=== PATIENT | female | born 1980 | race Caucasian/White ===

== ENCOUNTER 2018-04-16 19:23 | Emergency (ER) | payer OTHER ==
[~2018-04-16] VITALS: Ht 152.4 cm; Wt 111.1 kg
[~2018-04-16 19:23] MED LIST: ALLERGY10 M2 PO; BIRTH CONTROL PO; FLOMAX0.4 MG PO; HYDROCODON-ACE1 EAC7 PO; IBUPROFEN 800800 M1 PO; LOESTRIN 24 FE1 EACH PO; NORCO 5-325 TA1 EACH PO; PERCOCET 5-3251 EACH PO; PERCOCET PO; PRILOSEC 20 MG20 MG PO; TAMSULOSIN HCL0.4 MG PO; TIROSINT25 MCG PO; TORADOL 10 MG T10 MG PO; ZOFRAN 4 MG ORAL4 M1 DIS; ZOFRAN ODT4 MG PO; ZYRTEC10 M2 PO
[2018-04-16] MEDS ORDERED: POTASSIUM20 PO (19:38)
[2018-04-16 20:01] LABS: ABSOLUTE EOSINOPHILS 0.1 thou/uL (0.0-0.7); ABSOLUTE LYMPHOCYTES 3.4 thou/uL (0.8-5.3); ABSOLUTE MONOCYTES 0.6 thou/uL (0.0-1.2); ABSOLUTE NEUTROPHILS 9.3 thou/uL (1.6-8.1); BASOPHILS 0.3 %; EOSINOPHILS 0.6 %; HEMATOCRIT 39.6 % (37.0-47.0); LYMPHOCYTES 25.2 %; MCHC 32.9 g/dL (28.0-37.0); MCV 85.1 fL (80.0-100.0); MONOCYTES 4.2 %; MPV 6.9 fl. (7.2-11.1); NUCLEATED RBCS 0 /100WBC; PLATELET COUNT* 401 thou/uL (150-400); POLYS 69.7 %; RBC 4.66 mil/uL (4.20-5.00); RDW-CV 14.3 % (10.5-14.5); WBC 13.3 thou/uL (4.0-11.0)
[2018-04-16 20:11] LABS: ANION GAP 5 mmol/L (7-16); BUN 8 mg/dL (7-18); CALCIUM 9.5 mg/dL (8.5-10.1); CHLORIDE 102 mmol/L (98-107); CO2 29 mmol/L (21-32); CREATININE 0.8 mg/dL (0.6-1.3); GLUCOSE 115 mg/dL (70-99); SODIUM 136 mmol/L (136-145)
[2018-04-16 20:19] LABS: ALBUMIN 3.6 g/dL (3.4-5.0); ALKALINE PHOSPHATASE 181 U/L (46-116); SGOT 15 U/L (15-37); SGPT 35 U/L (30-65); TOTAL BILIRUBIN 0.3 mg/dL (<0.1-1.0); TOTAL PROTEIN 8.2 g/dL (6.4-8.2); TROPONIN-I LEVEL <0.06 ng/mL (<0.06)
[2018-04-16 20:52] LABS: URINE BILIRUBIN NEGATIVE (Negative); URINE BLOOD NEGATIVE (Negative); URINE CLARITY CLEAR; URINE COLOR YELLOW; URINE GLUCOSE-RANDOM NEGATIVE (Negative); URINE KETONES NEGATIVE (Negative); URINE LEUKOCYTES-REFLEX NEGATIVE (Negative); URINE NITRITE-REFLEX NEGATIVE (Negative); URINE PROTEIN NEGATIVE (Negative); URINE UROBILINOGEN 0.2 E.U./dl (0.2-1.0)
[2018-04-16] MEDS ORDERED: DOXYCYCLINE 10100 MG PO (21:54)
[2018-04-16 21:59] VITALS: BP 149/91
--- NOTE | 2018-04-17 13:24 | EKG ---
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
== END 2018-04-16 22:00 | disposition home or self-care (01) ==
LOC: M.ERS 19:23
PROVIDERS: Nurse Practitioner Family
DX: J32.0 Chronic maxillary sinusitis (principal); R42 Dizziness and giddiness; E89.0 Postprocedural hypothyroidism; Z88.0 Allergy status to penicillin; Z90.49 Acquired absence of other specified parts of digestive tract; Z87.442 Personal history of urinary calculi

== ENCOUNTER 2019-07-07 20:39 | Emergency (ER) | payer OTHER ==
[~2019-07-07] VITALS: Ht 152.4 cm; Wt 106.6 kg
[~2019-07-07 20:39] MED LIST changes: +DOXYCYCLINE 10100 MG PO; +POTASSIUM20 PO
[2019-07-07] MEDS ORDERED: CLARITIN10 M3 PO (20:51)
[2019-07-07] MEDS ORDERED: LEVO-T75 MCG PO (20:52)
[2019-07-07 21:24] LABS: ABSOLUTE EOSINOPHILS 0.2 thou/uL (0.0-0.7); ABSOLUTE LYMPHOCYTES 3.7 thou/uL (0.8-5.3); ABSOLUTE MONOCYTES 0.6 thou/uL (0.0-1.2); ABSOLUTE NEUTROPHILS 7.7 thou/uL (1.6-8.1); BASOPHILS 0.2 %; EOSINOPHILS 1.5 %; HEMATOCRIT 37.6 % (37.0-47.0); HEMOGLOBIN 12.6 gm/dL (12.0-15.0); LYMPHOCYTES 29.9 %; MCH 28.8 pg (26.0-34.0); MCHC 33.4 g/dL (28.0-37.0); MCV 86.3 fL (80.0-100.0); MONOCYTES 5.2 %; MPV 7.3 fl. (7.2-11.1); NUCLEATED RBCS 0 /100WBC; PLATELET COUNT* 363 thou/uL (150-400); POLYS 63.2 %; RBC 4.36 mil/uL (4.20-5.00); RDW-CV 14.3 % (10.5-14.5); WBC 12.2 thou/uL (4.0-11.0)
[2019-07-07 21:33] LABS: CALCIUM 9.8 mg/dL (8.5-10.1); CREATININE 0.8 mg/dL (0.6-1.3); POTASSIUM 3.9 mmol/L (3.5-5.1)
[2019-07-07 21:44] LABS: ALBUMIN 3.5 g/dL (3.4-5.0); MAGNESIUM 1.7 mg/dL (1.8-2.4); TOTAL BILIRUBIN 0.2 mg/dL (<0.1-1.0); TOTAL PROTEIN 7.9 g/dL (6.4-8.2)
[2019-07-07 23:10] VITALS: BP 150/84
--- NOTE | 2019-07-08 16:55 | EKG ---
[place] [address] ELECTROCARDIOGRAM REPORT Name: CHUCKYADIRA Halie Room: [facility]#: [id number] Admission: 07/07/19 Attend Phys: Discharge: 07/07/19 Date of : 78 Report #: [id number] THIS REPORT FOR: //name// [facility] ED Test Date: 2019-07-07 Test Time: 20:45:43 Pat Name: YADIRA WOODS Department: Room: Gender: F Rn Clinician: ARUNA : 1980 Requested By: Leoncio Joseph Order Number: [id number] MD: Wang Francisco Measurements Intervals [place] Rate: 101 P: 37 HI: 146 QRS: 25 QRSD: 93 T: 18 QT: 340 QTc: 441 Interpretive Statements Sinus tachycardia Borderline T abnormalities, anterior leads Compared to ECG 04/16/2018 19:59:06 T-wave abnormality now present Sinus rate has increased Electronically Signed On 07-08-2019 16:55:17 CDT by Wang Francisco [email or web address] <ELECTRONICALLY SIGNED> By: Wang Francisco MD, [facility] 07/08/195 44 44 Wang Francisco MD, FACC /EPI
--- NOTE | 2019-07-08 16:56 | EKG ---
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 : 1980 Requested By: Leoncio Joseph Order Number: [id number] MD: Wang Francisco Measurements Intervals [place] Rate: 101 P: 27 MS: 148 QRS: 13 QRSD: 89 T: 6 QT: 355 QTc: 461 Interpretive Statements Sinus tachycardia Low voltage, precordial leads Borderline T abnormalities, anterior leads Compared to ECG 04/16/2018 19:59:06 T-wave abnormality now present Sinus rate has increased Electronically Signed On 07-08-2019 16:55:49 CDT by Wang Francisco [email or web address] <ELECTRONICALLY SIGNED> By: Wang Francisco MD, [facility] 07/08/19 [id number] Wang Francisco MD, [facility] /EPI
== END 2019-07-07 23:10 | disposition home or self-care (01) ==
LOC: M.ERS 20:39
PROVIDERS: Emergency Medicine Emergency Medical Services
DX: R00.2 Palpitations (principal); R42 Dizziness and giddiness; Z90.49 Acquired absence of other specified parts of digestive tract; Z98.890 Other specified postprocedural states; Z87.442 Personal history of urinary calculi; Z88.0 Allergy status to penicillin

== ENCOUNTER 2019-07-23 12:00 | Inpatient (IN) | payer OTHER ==
[~2019-07-23] VITALS: Ht 152.4 cm; Wt 121.1 kg
[~2019-07-23 12:00] MED LIST changes: +CLARITIN10 M3 PO; +LEVO-T75 MCG PO
[2019-07-23 12:02] VITALS: BP 136/83
[2019-07-23] MEDS ORDERED: BYSTOLIC 5 MG5 M1 PO (12:14)
[2019-07-23 12:44] LABS: ABSOLUTE BASOPHILS 0.1 thou/uL (0.0-0.2); ABSOLUTE EOSINOPHILS 0.2 thou/uL (0.0-0.7); ABSOLUTE MONOCYTES 0.7 thou/uL (0.0-1.2); ABSOLUTE NEUTROPHILS 10.4 thou/uL (1.6-8.1); EOSINOPHILS 1.1 %; HEMATOCRIT 38.3 % (37.0-47.0); HEMOGLOBIN 12.9 gm/dL (12.0-15.0); LYMPHOCYTES 15.1 %; MCH 28.8 pg (26.0-34.0); MCHC 33.7 g/dL (28.0-37.0); MCV 85.4 fL (80.0-100.0); MONOCYTES 5.4 %; MPV 7.3 fl. (7.2-11.1); NUCLEATED RBCS 0 /100WBC; PLATELET COUNT* 440 thou/uL (150-400); POLYS 77.4 %; RBC 4.48 mil/uL (4.20-5.00); RDW-CV 14.2 % (10.5-14.5); WBC 13.5 thou/uL (4.0-11.0)
[2019-07-23 13:04] LABS: CALCIUM 8.9 mg/dL (8.5-10.1); POTASSIUM 4.5 mmol/L (3.5-5.1)
[2019-07-23 13:14] LABS: ALBUMIN 3.3 g/dL (3.4-5.0); TOTAL BILIRUBIN 0.2 mg/dL (<0.1-1.0); TOTAL PROTEIN 7.4 g/dL (6.4-8.2)
[2019-07-23 17:53] VITALS: BP 115/69
[2019-07-23 18:00] VITALS: BP 128/72
--- NOTE | 2019-07-23 19:55 | NUR ---
PATIENT ARRIVED FROM ER AT 1800. PATIENT SETTLED TO ROOM. HISTORY, ASSESSMENT, VITALS AND WOUND CARE COMPLETED AND DOCUMENTED. PATIENT HAS COMPLAINT SOF PAIN 4/10, DENIES NEED FOR MEDICATION AT THIS TIME. PATIENT DENIES ANY NEEDS AT THIS TIME. CALL LIGHT WITHIN REACH.
[2019-07-23 20:30] VITALS: BP 113/66
[2019-07-24 04:40] LABS: HEMATOCRIT 34.5 % (37.0-47.0); HEMOGLOBIN 11.4 gm/dL (12.0-15.0); MCH 28.4 pg (26.0-34.0); MCHC 33.1 g/dL (28.0-37.0); MCV 85.7 fL (80.0-100.0); MPV 6.4 fl. (7.2-11.1); RBC 4.03 mil/uL (4.20-5.00); RDW-CV 14.3 % (10.5-14.5); WBC 11.4 thou/uL (4.0-11.0)
--- NOTE | 2019-07-24 04:50 | NUR ---
PT LAERT AND ORIENTED. VSS ON RA. WOUND TO RT THIGH. ABD PAD DRESSING IN PLACE. RH IV WITH NS @150. ABX INFUSED PER EMAR. SCHLD PAIN MEDS GIVEN EXCEPT MIDNIGHT DOSE. PT REFUSED AT THAT TIME. AND DTR AT BEDSIDE BEGINNING OF SHIFT. PT STEADY ON HER FEET. CALLS OUT TO GO USE BATHROOM BUT CAN BE UP AD GUTIERREZ. MRSA SWAP SENT TO LAB. CALL LIGHT WITHIN REACH. HOURY ROUNDINGS MADE. WILL CONTINE.
[2019-07-24 05:07] LABS: GLYCOHEMOGLOBIN (HGB A1C) 5.8 % (4.8-5.6)
[2019-07-24 05:29] LABS: ALBUMIN 2.6 g/dL (3.4-5.0); CALCIUM 8.2 mg/dL (8.5-10.1); CREATININE 0.8 mg/dL (0.6-1.3); POTASSIUM 4.2 mmol/L (3.5-5.1); TOTAL BILIRUBIN 0.3 mg/dL (<0.1-1.0); TOTAL PROTEIN 6.8 g/dL (6.4-8.2)
[2019-07-24 07:25] VITALS: BP 125/75
--- NOTE | 2019-07-24 17:55 | NUR ---
PT A&OX4 VSS. PT UP AD GUTIERREZ, GAIT STEADY. DRESSING TO R THIGH CHANGED BY THIS NURSE X2. AREA CLEANSED WITH WOUND CLEANSER AND ABD SECURED W/TAPE. R HAND IV DC'D NO LONGER PATENT. NEW ACCESS STARTED IN L HAND. IV FLUIDS AND ANTIOBIOTICS INFUSING. C/O NAUSEA ADDRESSED WITH MEDICATION ORDERED. DENIES VOMITING. PAIN MANAGED WITH SCHEDULED PO TRAMADOL. ORDERS PLACED FOR WOUND CULTURES, SPECIMENS WERE COLLECTED PRIOR TO THIS NURSE WHILE PT WAS SEEN IN ER BY DR MARY. VANC DOSE INCREASED R/T RESULTS OF VANC TROUGH. PT RESTS IN ROOM WITH CALL LIGHT IN REACH. WILL CONTINUE TO MONITOR.
[2019-07-24 19:30] VITALS: BP 145/83
--- NOTE | 2019-07-25 06:40 | NUR ---
PT ALERT AND ORIENTED. VSS ON RA. PT SLEPT MST OF SHIFT. SCHLD PAIN MEDS GIVEN. DRESSING TO RT THIG CHANGED. UP AD GUTIERREZ. CALL LIGHT WITHIN REACH. HOURLY ROUNDINGS MADE. WILL CONTINUE TO MONITOR.
[2019-07-25 07:30] VITALS: BP 129/86
[2019-07-25] MEDS ORDERED: ERGOCALCIF50000 UNIT PO (11:35)
[2019-07-25] MEDS ORDERED: CLINDAMYCIN HC300 MG PO (11:35)
[2019-07-25 13:51] VITALS: BP 129/86
--- NOTE | 2019-07-25 15:00 | NUR ---
PT A&OX4 VSS. PT IV DC'D PRIOR TO LEAVING UNIT. NO REDNESS/SWELLING NOTED. 1ST DOSE ERGOCALCIFEROL ADMINISTERED TODAY PRIOR TO DC FROM HOSPITAL. DRESSING TO WOUND CHANGED IMMEDIATELY PRIOR TO DC. PHOTO OF WOUND UPDATED AND PLACED IN PT CHART. PT DENIES PAIN ATTHIS TIME. PT DENIES N/V/D WELL. PT DRESSED SELF WITHOUT ASSISTANCE OR DIFFICULTY. PT INSTRUCTED TO F/U WITH PCP IN APPROX 2 WEEKS. PT STATES UNDERSTANDING OF DC INSTRUCTIONS AND RX PROVIDED UPON DC. PT LEAVES UNIT IN WC, NURSING STAFF TRANSPORTING, WITH SPOUSE AND CHILDREN ACCOMAPNYING.
== END 2019-07-25 15:00 | disposition home or self-care (01) | DRG 872 ==
LOC: M.ERS 12:00 → M.TBA-ER 13:12 → M.3W 18:13
PROVIDERS: Nurse Practitioner Family; ADMIT Family Medicine
DX: A41.9 Sepsis, unspecified organism (principal); L03.115 Cellulitis of right lower limb; Z68.43 Body mass index [BMI] 50.0-59.9, adult; E89.0 Postprocedural hypothyroidism; E66.9 Obesity, unspecified; E55.9 Vitamin D deficiency, unspecified; E88.09 Other disorders of plasma-protein metabolism, not elsewhere classified; Z98.891 History of uterine scar from previous surgery; Z90.49 Acquired absence of other specified parts of digestive tract; Z87.442 Personal history of urinary calculi; Z79.899 Other long term (current) drug therapy; Z88.0 Allergy status to penicillin; Z86.14 Personal history of Methicillin resistant Staphylococcus aureus infection